=== PATIENT | male | born 1985 | race Caucasian/White ===

== ENCOUNTER 2022-02-24 13:37 | Outpatient (REF) | payer OTHER, SELFPAY ==
--- NOTE | ~2022-02-24 | XR_ITS ---
EXAMINATION: XR LUMBOSACRAL SPINE WITH OBLIQUES CLINICAL INFORMATION: Low back pain. COMPARISON: None TECHNIQUE: AP, both oblique, and lateral views of the lumbar spine. Lateral view of the lumbosacral junction. FINDINGS: The vertebral bodies and posterior elements are normal. Spinal alignment is maintained with flexion maneuvers. The disc spaces are preserved and the vertebral alignment is normal. The paraspinal soft tissues are normal. XR/XR lumbar spine 6V w bending IMPRESSION: Unremarkable lumbar spine.
--- NOTE | ~2022-02-24 | XR_ITS ---
EXAMINATION: XR KNEE, LEFT CLINICAL INFORMATION: Pain in left knee COMPARISON: None TECHNIQUE: Three views of the left knee. FINDINGS: Small knee effusion. Normal alignment without acute osseous abnormality seen. A corticated density is identified adjacent to the tibial tuberosity, nonacute. XR/XR knee LT 3V IMPRESSION: Small knee effusion. Normal alignment. No acute osseous abnormality is seen.
== END 2022-02-24 13:38 | disposition home or self-care (01) ==
LOC: HO.XRAY 13:37
PROVIDERS: PCP Physical Medicine & Rehabilitation; Visit Provider Nurse Practitioner Family
DX: G89.29 Other chronic pain (principal); M41.9 Scoliosis, unspecified; M47.816 Spondylosis without myelopathy or radiculopathy, lumbar region; M54.50 Low back pain, unspecified; M25.562 Pain in left knee
CPT/HCPCS: 72114; 73562

== ENCOUNTER → 2022-04-07 13:56 | Outpatient (BNVA) | payer OTHER, SELFPAY | PROVIDERS: PCP Physical Medicine & Rehabilitation; Visit Provider Physician Assistant | DX: Z13.89 Encounter for screening for other disorder (principal) ==